=== PATIENT | female | born 1940 | race Caucasian/White ===

== ENCOUNTER 2022-09-21 17:47 | Inpatient (IN) | payer MEDICARE, OTHER ==
[~2022-09-21] VITALS: Ht 154.9 cm; Wt 52.2 kg
[2022-09-21 18:20] VITALS: BP 145/78
[2022-09-21] MEDS ORDERED: ACETAMINOPHEN 325 MG TABLET PO PRN (19:00)
[2022-09-21] MEDS ORDERED: DEXTROSE 40% LEMON 37.5 GM/TUBE GEL [15 GM GLUCOSE] PO PRN (20:00)
[2022-09-21] MEDS ORDERED: DEXTROSE 50%-WATER 25 GM/50 ML SYRINGE IVP PRN (20:00)
[2022-09-21] MEDS: DOCUSATE SODIUM 100 MG CAPSULE PO SCH (22:05)
[2022-09-21] MEDS: SENNOSIDES 8.6 MG TABLET PO SCH (22:05)
[2022-09-21] MEDS: HEPARIN SODIUM,PORCINE 5,000 UNITS/ML VIAL SQ SCH (22:06)
[2022-09-21] MEDS: AMOXICILLIN TRIHYDRATE 500 MG CAPSULE PO SCH (22:06)
[2022-09-21 22:36] LABS: GLUCOMETER DEV NAME(LOC) 2WR.2B; GLUCOSE,POINT OF CARE 126 MG/DL (70-110)
[2022-09-22] MEDS ORDERED: INFLUENZA VIRUS VACCINE QVS 2022-23 (6MO+)/PF 60 MCG/0.5 ML SYRINGE IM. ONE (01:45)
[2022-09-22] MEDS ORDERED: PNEUMOCOCCAL VACCINE POLYVALENT 0.5 ML VIAL [PPSV23] IM. ONE (01:45)
[2022-09-22 04:24] VITALS: BP 153/74
[2022-09-22 06:32] LABS: GLUCOMETER DEV NAME(LOC) 2WR.2B; GLUCOSE,POINT OF CARE 87 MG/DL (70-110)
[2022-09-22] MEDS: LEVOTHYROXINE SODIUM 88 MCG TABLET PO SCH (07:01)
[2022-09-22] MEDS: LANSOPRAZOLE 30 MG CAPSULE PO SCH (07:04)
[2022-09-22 08:00] VITALS: BP 157/77
[2022-09-22] MEDS: ETHYL ALCOHOL 62% ANTISEPTIC NASAL SANITIZER 0.6 ML AMPUL NASAL SCH ×2 (08:37→20:49)
[2022-09-22] MEDS: ASPIRIN 325 MG TABLET PO SCH (08:37)
[2022-09-22] MEDS: ATORVASTATIN CALCIUM 40 MG TABLET PO SCH (08:38)
[2022-09-22] MEDS: MULTIVITAMINS WITH MINERALS, THERAPEUTIC TABLET PO SCH (08:38)
[2022-09-22] MEDS: AMOXICILLIN TRIHYDRATE 500 MG CAPSULE PO SCH ×2 (08:38→17:19)
[2022-09-22] MEDS: DOCUSATE SODIUM 100 MG CAPSULE PO SCH ×2 (08:38→20:49)
[2022-09-22] MEDS: LOSARTAN POTASSIUM 50 MG TABLET PO SCH (08:38)
[2022-09-22] MEDS: HEPARIN SODIUM,PORCINE 5,000 UNITS/ML VIAL SQ SCH ×2 (08:39→20:50)
[2022-09-22 09:30] VITALS: BP 146/70
[2022-09-22] MEDS: INSULIN LISPRO 100 UNITS/ML SQ PRN ×2 (12:41→21:37)
[2022-09-22 12:56] LABS: GLUCOMETER DEV NAME(LOC) 2WR.2B; GLUCOSE,POINT OF CARE 155 MG/DL (70-110)
[2022-09-22 14:12] LABS: BASOPHILS % (AUTO) 0.5 % (0.0-2.0); EOSINOPHILS % (AUTO) 0.4 % (1.0-6.0); HEMATOCRIT 32.6 % (36-46); HEMOGLOBIN 10.8 g/dL (12.0-16.0); LYMPHOCYTES # (AUTO) 1.7 K/uL (1.0-4.8); LYMPHOCYTES % (AUTO) 25.3 % (22.0-44.0); MEAN CORPUSCULAR HEMOGLOBIN 26.7 pg (26.0-34.0); MEAN CORPUSCULAR HGB CONC 33.2 G/dL (31.0-37.0); MEAN CORPUSCULAR VOLUME 81 fL (80-100); MONOCYTES # (AUTO) 0.7 K/uL (0.1-1.0); NEUTROPHILS # (AUTO) 4.2 K/uL (1.8-7.7); NEUTROPHILS % (AUTO) 63.8 % (40.0-70.0); PLATELET COUNT (AUTO) 378 K/uL (150-450); RED BLOOD CELL COUNT(AUTO) 4.05 MIL/uL (4.00-5.20); RED CELL DISTRIBUTION WIDTH 13.9 % (11.5-14.5)
[2022-09-22 14:27] LABS: ALANINE AMINOTRANSFERASE 21 U/L (12-78); ALBUMIN 2.9 g/dL (3.4-5.0); ALKALINE PHOSPHATASE 86 U/L (46-116); ANION GAP 9 mmol/L (8-16); ASPARTATE AMINOTRANSFERASE 33 U/L (15-37); BILIRUBIN,TOTAL 0.4 mg/dL (0.1-1.0); CALCIUM, TOTAL 8.3 mg/dL (8.8-10.5); CARBON DIOXIDE 25 mmol/L (22-29); CHLORIDE 102 mmol/L (98-107); CREATININE 0.68 mg/dL (0.60-1.30); GLOMERULAR FILTR. RATE CALC > 60 mL/min (>60); GLUCOSE,RANDOM 197 mg/dL (70-110); POTASSIUM 3.1 mmol/L (3.5-5.1); SODIUM SERUM 136 mmol/L (136-145); TOTAL PROTEIN, SERUM 6.6 g/dL (6.4-8.2); UREA NITROGEN, BLOOD 11 mg/dL (7-18)
[2022-09-22 17:27] LABS: GLUCOMETER DEV NAME(LOC) 2WR.2B; GLUCOSE,POINT OF CARE 120 MG/DL (70-110)
[2022-09-22] MEDS: SENNOSIDES 8.6 MG TABLET PO SCH (20:50)
[2022-09-22 21:00] VITALS: BP 159/79
[2022-09-22 22:31] LABS: GLUCOMETER DEV NAME(LOC) 2WR.2B; GLUCOSE,POINT OF CARE 163 MG/DL (70-110)
[2022-09-23 07:21] LABS: GLUCOMETER DEV NAME(LOC) 2WR.2B; GLUCOSE,POINT OF CARE 127 MG/DL (70-110)
[2022-09-23] MEDS: LEVOTHYROXINE SODIUM 88 MCG TABLET PO SCH (07:22)
[2022-09-23] MEDS: LANSOPRAZOLE 30 MG CAPSULE PO SCH (07:22)
[2022-09-23 08:00] VITALS: BP 157/83
[2022-09-23] MEDS: DOCUSATE SODIUM 100 MG CAPSULE PO SCH (08:16)
[2022-09-23] MEDS: ASPIRIN 325 MG TABLET PO SCH (08:16)
[2022-09-23] MEDS: LOSARTAN POTASSIUM 50 MG TABLET PO SCH (08:16)
[2022-09-23] MEDS: MULTIVITAMINS WITH MINERALS, THERAPEUTIC TABLET PO SCH (08:17)
[2022-09-23] MEDS: ATORVASTATIN CALCIUM 40 MG TABLET PO SCH (08:17)
[2022-09-23] MEDS: HEPARIN SODIUM,PORCINE 5,000 UNITS/ML VIAL SQ SCH ×2 (08:17→20:25)
[2022-09-23] MEDS: ETHYL ALCOHOL 62% ANTISEPTIC NASAL SANITIZER 0.6 ML AMPUL NASAL SCH ×2 (08:19→20:24)
[2022-09-23 12:26] LABS: GLUCOMETER DEV NAME(LOC) 2WR.1C; GLUCOSE,POINT OF CARE 223 MG/DL (70-110)
[2022-09-23] MEDS: INSULIN LISPRO 100 UNITS/ML SQ PRN ×3 (12:41→20:20)
[2022-09-23] MEDS ORDERED: POTASSIUM CHLORIDE 8 MEQ ER TABLET PO ONE (14:15)
[2022-09-23 19:59] VITALS: BP 174/87
[2022-09-23 20:00] VITALS: BP 167/70
[2022-09-23 20:15] LABS: GLUCOMETER DEV NAME(LOC) 2WR.1C; GLUCOSE,POINT OF CARE 149 MG/DL (70-110)
[2022-09-23] MEDS: DOCUSATE SODIUM 250 MG CAPSULE PO SCH (20:24)
[2022-09-23] MEDS: SENNOSIDES 8.6 MG TABLET PO SCH (20:25)
[2022-09-23] MEDS: MELATONIN 5 MG TABLET PO PRN (20:25)
[2022-09-23 21:21] LABS: GLUCOMETER DEV NAME(LOC) 2WR.2B; GLUCOSE,POINT OF CARE 180 MG/DL (70-110)
[2022-09-24 06:30] VITALS: BP 128/73
[2022-09-24] MEDS: LANSOPRAZOLE 30 MG CAPSULE PO SCH (06:40)
[2022-09-24] MEDS: LEVOTHYROXINE SODIUM 88 MCG TABLET PO SCH (06:40)
[2022-09-24 07:31] LABS: GLUCOMETER DEV NAME(LOC) 2WR.1C; GLUCOSE,POINT OF CARE 143 MG/DL (70-110)
[2022-09-24] MEDS: INSULIN LISPRO 100 UNITS/ML SQ PRN ×4 (07:40→20:38)
[2022-09-24] MEDS: ETHYL ALCOHOL 62% ANTISEPTIC NASAL SANITIZER 0.6 ML AMPUL NASAL SCH ×2 (07:47→20:38)
[2022-09-24] MEDS: HEPARIN SODIUM,PORCINE 5,000 UNITS/ML VIAL SQ SCH ×2 (07:48→20:32)
[2022-09-24] MEDS: ATORVASTATIN CALCIUM 40 MG TABLET PO SCH (07:48)
[2022-09-24] MEDS: MULTIVITAMINS WITH MINERALS, THERAPEUTIC TABLET PO SCH (07:48)
[2022-09-24] MEDS: DOCUSATE SODIUM 250 MG CAPSULE PO SCH ×2 (07:48→20:32)
[2022-09-24] MEDS: ASPIRIN 325 MG TABLET PO SCH (07:48)
[2022-09-24] MEDS: LOSARTAN POTASSIUM 50 MG TABLET PO SCH (07:48)
[2022-09-24 08:33] VITALS: BP 145/68
[2022-09-24 11:41] LABS: ANION GAP 8 mmol/L (8-16); CALCIUM, TOTAL 8.4 mg/dL (8.8-10.5); CARBON DIOXIDE 28 mmol/L (22-29); CHLORIDE 103 mmol/L (98-107); CREATININE 0.71 mg/dL (0.60-1.30); GLOMERULAR FILTR. RATE CALC > 60 mL/min (>60); GLUCOSE,RANDOM 188 mg/dL (70-110); POTASSIUM 3.5 mmol/L (3.5-5.1); SODIUM SERUM 139 mmol/L (136-145); UREA NITROGEN, BLOOD 12 mg/dL (7-18)
[2022-09-24 12:21] LABS: GLUCOMETER DEV NAME(LOC) 2WR.2B; GLUCOSE,POINT OF CARE 167 MG/DL (70-110)
[2022-09-24 17:06] LABS: GLUCOMETER DEV NAME(LOC) 2WR.1C; GLUCOSE,POINT OF CARE 190 MG/DL (70-110)
[2022-09-24] MEDS: DOCUSATE SODIUM 283 MG/5 ML MINI-ENEMA PR PRN (18:45)
[2022-09-24 20:00] VITALS: BP 148/70
[2022-09-24] MEDS: SENNOSIDES 8.6 MG TABLET PO SCH (20:31)
[2022-09-24] MEDS: MELATONIN 5 MG TABLET PO PRN (20:32)
[2022-09-25 05:06] LABS: GLUCOMETER DEV NAME(LOC) 2WR.1C; GLUCOSE,POINT OF CARE 163 MG/DL (70-110)
[2022-09-25] MEDS: LEVOTHYROXINE SODIUM 88 MCG TABLET PO SCH (06:02)
[2022-09-25] MEDS: LANSOPRAZOLE 30 MG CAPSULE PO SCH (06:02)
[2022-09-25 07:11] LABS: GLUCOMETER DEV NAME(LOC) 2WR.1C; GLUCOSE,POINT OF CARE 162 MG/DL (70-110)
[2022-09-25 08:00] VITALS: BP 168/102
[2022-09-25] MEDS: ETHYL ALCOHOL 62% ANTISEPTIC NASAL SANITIZER 0.6 ML AMPUL NASAL SCH ×2 (08:18→20:23)
[2022-09-25] MEDS: DOCUSATE SODIUM 250 MG CAPSULE PO SCH ×2 (08:20→20:23)
[2022-09-25] MEDS: ASPIRIN 325 MG TABLET PO SCH (08:20)
[2022-09-25] MEDS: LOSARTAN POTASSIUM 50 MG TABLET PO SCH (08:21)
[2022-09-25] MEDS: HEPARIN SODIUM,PORCINE 5,000 UNITS/ML VIAL SQ SCH ×2 (08:21→20:24)
[2022-09-25] MEDS: ATORVASTATIN CALCIUM 40 MG TABLET PO SCH (08:21)
[2022-09-25] MEDS: MULTIVITAMINS WITH MINERALS, THERAPEUTIC TABLET PO SCH (08:21)
[2022-09-25] MEDS: INSULIN LISPRO 100 UNITS/ML SQ PRN ×4 (08:23→20:28)
[2022-09-25 09:15] VITALS: BP 157/86
[2022-09-25 11:45] VITALS: BP 158/95
[2022-09-25] MEDS: AmLODIPine BESYLATE 5 MG TABLET PO SCH (11:51)
[2022-09-25 13:45] VITALS: BP 183/86
[2022-09-25 14:08] VITALS: BP 152/79
[2022-09-25 17:11] LABS: GLUCOMETER DEV NAME(LOC) 2WR.1C; GLUCOSE,POINT OF CARE 223 MG/DL (70-110)
[2022-09-25 17:17] LABS: GLUCOMETER DEV NAME(LOC) 2WR.2B; GLUCOSE,POINT OF CARE 172 MG/DL (70-110)
[2022-09-25] MEDS: MELATONIN 5 MG TABLET PO PRN (20:23)
[2022-09-25] MEDS: OXYGEN THERAPY IH SCH (20:23)
[2022-09-25] MEDS: SENNOSIDES 8.6 MG TABLET PO SCH (20:24)
[2022-09-25 20:30] VITALS: BP 142/77
[2022-09-25 21:36] LABS: GLUCOMETER DEV NAME(LOC) 2WR.2B; GLUCOSE,POINT OF CARE 152 MG/DL (70-110)
[2022-09-25] MEDS ORDERED: INSU100I24 SQ (22:13)
[2022-09-25] MEDS ORDERED: DILT60TA3 PO (22:13)
[2022-09-25] MEDS ORDERED: LOSA-382 PO (22:13)
[2022-09-25] MEDS ORDERED: OMEP20 PO (22:13)
[2022-09-25] MEDS ORDERED: LEVO88TA4 PO (22:13)
[2022-09-25] MEDS ORDERED: INSU100I3 SQ (22:13)
[2022-09-26 02:05] VITALS: BP 153/89
[2022-09-26 02:10] VITALS: BP 153/89
[2022-09-26] MEDS: LEVOTHYROXINE SODIUM 88 MCG TABLET PO SCH (06:15)
[2022-09-26] MEDS: LANSOPRAZOLE 30 MG CAPSULE PO SCH (06:15)
[2022-09-26 06:41] LABS: GLUCOMETER DEV NAME(LOC) 2WR.2B; GLUCOSE,POINT OF CARE 158 MG/DL (70-110)
[2022-09-26] MEDS: HEPARIN SODIUM,PORCINE 5,000 UNITS/ML VIAL SQ SCH ×2 (07:36→20:53)
[2022-09-26] MEDS: ASPIRIN 325 MG TABLET PO SCH (07:38)
[2022-09-26] MEDS: DOCUSATE SODIUM 250 MG CAPSULE PO SCH ×2 (07:38→20:53)
[2022-09-26] MEDS: ETHYL ALCOHOL 62% ANTISEPTIC NASAL SANITIZER 0.6 ML AMPUL NASAL SCH ×2 (07:38→20:54)
[2022-09-26] MEDS: AmLODIPine BESYLATE 5 MG TABLET PO SCH (07:39)
[2022-09-26] MEDS: ATORVASTATIN CALCIUM 40 MG TABLET PO SCH (07:40)
[2022-09-26] MEDS: LOSARTAN POTASSIUM 50 MG TABLET PO SCH (07:40)
[2022-09-26] MEDS: MULTIVITAMINS WITH MINERALS, THERAPEUTIC TABLET PO SCH (07:40)
[2022-09-26] MEDS: OXYGEN THERAPY IH SCH ×2 (07:41→20:00)
[2022-09-26] MEDS: INSULIN LISPRO 100 UNITS/ML SQ PRN ×3 (07:43→16:54)
[2022-09-26 09:05] VITALS: BP 143/79
[2022-09-26 10:21] LABS: GLUCOMETER DEV NAME(LOC) 2WR.1C; GLUCOSE,POINT OF CARE 140 MG/DL (70-110)
[2022-09-26] MEDS ORDERED: DILT-39 PO (10:55)
[2022-09-26] MEDS: FLUoxetine HCL 10 MG CAPSULE PO SCH (11:33)
[2022-09-26] MEDS: INSULIN LISPRO 100 UNITS/ML SQ SCH ×2 (12:25→16:54)
[2022-09-26 12:46] LABS: GLUCOMETER DEV NAME(LOC) 2WR.1C; GLUCOSE,POINT OF CARE 185 MG/DL (70-110)
[2022-09-26 17:26] LABS: GLUCOMETER DEV NAME(LOC) 2WR.2B; GLUCOSE,POINT OF CARE 199 MG/DL (70-110)
[2022-09-26 20:00] VITALS: BP 143/65
[2022-09-26] MEDS: SENNOSIDES 8.6 MG TABLET PO SCH (20:53)
[2022-09-26] MEDS: MELATONIN 5 MG TABLET PO PRN (20:53)
[2022-09-26 21:41] LABS: GLUCOMETER DEV NAME(LOC) 2WR.2B; GLUCOSE,POINT OF CARE 132 MG/DL (70-110)
[2022-09-27] MEDS: LEVOTHYROXINE SODIUM 88 MCG TABLET PO SCH (06:31)
[2022-09-27] MEDS: LANSOPRAZOLE 30 MG CAPSULE PO SCH (06:31)
[2022-09-27 07:11] LABS: GLUCOMETER DEV NAME(LOC) 2WR.1C; GLUCOSE,POINT OF CARE 160 MG/DL (70-110)
[2022-09-27] MEDS: INSULIN LISPRO 100 UNITS/ML SQ SCH ×3 (08:00→17:18)
[2022-09-27] MEDS ORDERED: OXYGEN THERAPY IH PRN (08:15)
[2022-09-27] MEDS: FLUoxetine HCL 10 MG CAPSULE PO SCH (09:10)
[2022-09-27] MEDS: MULTIVITAMINS WITH MINERALS, THERAPEUTIC TABLET PO SCH (09:10)
[2022-09-27] MEDS: HEPARIN SODIUM,PORCINE 5,000 UNITS/ML VIAL SQ SCH ×2 (09:10→20:40)
[2022-09-27] MEDS: LOSARTAN POTASSIUM 50 MG TABLET PO SCH (09:10)
[2022-09-27] MEDS: DOCUSATE SODIUM 250 MG CAPSULE PO SCH ×2 (09:10→20:40)
[2022-09-27] MEDS: ATORVASTATIN CALCIUM 40 MG TABLET PO SCH (09:11)
[2022-09-27] MEDS: ETHYL ALCOHOL 62% ANTISEPTIC NASAL SANITIZER 0.6 ML AMPUL NASAL SCH ×2 (09:12→20:39)
[2022-09-27] MEDS: ASPIRIN 325 MG TABLET PO SCH (09:12)
[2022-09-27] MEDS: AmLODIPine BESYLATE 5 MG TABLET PO SCH (09:12)
[2022-09-27 11:31] VITALS: BP 145/76
[2022-09-27 12:16] LABS: GLUCOMETER DEV NAME(LOC) 2WR.2B; GLUCOSE,POINT OF CARE 157 MG/DL (70-110)
[2022-09-27] MEDS: INSULIN LISPRO 100 UNITS/ML SQ PRN ×2 (12:21→17:20)
[2022-09-27] MEDS: SENNOSIDES 8.6 MG TABLET PO SCH (20:39)
[2022-09-27] MEDS: MELATONIN 5 MG TABLET PO PRN (20:41)
[2022-09-27 21:55] VITALS: BP 148/79
[2022-09-27 22:46] LABS: GLUCOMETER DEV NAME(LOC) 2WR.2B; GLUCOSE,POINT OF CARE 94 MG/DL (70-110)
[2022-09-28 01:41] LABS: GLUCOMETER DEV NAME(LOC) 2WR.1C; GLUCOSE,POINT OF CARE 162 MG/DL (70-110)
[2022-09-28 05:21] VITALS: BP 145/82
[2022-09-28] MEDS: LEVOTHYROXINE SODIUM 88 MCG TABLET PO SCH (06:46)
[2022-09-28] MEDS: LANSOPRAZOLE 30 MG CAPSULE PO SCH (06:46)
[2022-09-28 07:10] LABS: GLUCOMETER DEV NAME(LOC) 2WR.2B; GLUCOSE,POINT OF CARE 159 MG/DL (70-110)
[2022-09-28 08:00] VITALS: BP 152/76
[2022-09-28] MEDS: ASPIRIN 325 MG TABLET PO SCH (08:10)
[2022-09-28] MEDS: ETHYL ALCOHOL 62% ANTISEPTIC NASAL SANITIZER 0.6 ML AMPUL NASAL SCH ×2 (08:10→19:52)
[2022-09-28] MEDS: DOCUSATE SODIUM 250 MG CAPSULE PO SCH ×3 (08:10→20:10)
[2022-09-28] MEDS: ATORVASTATIN CALCIUM 40 MG TABLET PO SCH (08:11)
[2022-09-28] MEDS: LOSARTAN POTASSIUM 50 MG TABLET PO SCH (08:11)
[2022-09-28] MEDS: AmLODIPine BESYLATE 5 MG TABLET PO SCH (08:12)
[2022-09-28] MEDS: MULTIVITAMINS WITH MINERALS, THERAPEUTIC TABLET PO SCH (08:12)
[2022-09-28] MEDS: HEPARIN SODIUM,PORCINE 5,000 UNITS/ML VIAL SQ SCH ×2 (08:13→19:53)
[2022-09-28] MEDS: FLUoxetine HCL 10 MG CAPSULE PO SCH (08:13)
[2022-09-28] MEDS: INSULIN LISPRO 100 UNITS/ML SQ SCH ×3 (08:15→17:16)
[2022-09-28] MEDS: INSULIN LISPRO 100 UNITS/ML SQ PRN ×2 (08:15→17:17)
[2022-09-28 11:33] VITALS: BP 137/68
[2022-09-28 13:51] LABS: GLUCOMETER DEV NAME(LOC) 2WR.1C; GLUCOSE,POINT OF CARE 109 MG/DL (70-110)
[2022-09-28] MEDS ORDERED: IBUPROFEN 400 MG TABLET PO PRN (16:30)
[2022-09-28 17:01] LABS: GLUCOMETER DEV NAME(LOC) 2WR.2B; GLUCOSE,POINT OF CARE 193 MG/DL (70-110)
[2022-09-28 17:11] LABS: APPEARANCE,URINE CLEAR (CLEAR); BILIRUBIN,URINE NEGATIVE (NEGATIVE); GLUCOSE, URINE (UA) TRACE mg/dL (NEGATIVE); KETONES,URINE TRACE mg/dL (NEGATIVE); LEUKOCYTE ESTERASE ,URINE MODERATE (NEGATIVE); NITRATE,URINE NEGATIVE (NEGATIVE); OCCULT BLOOD,URINE NEGATIVE (NEGATIVE); PROTEIN,URINE 30-70 mg/dL (NEGATIVE); SPECIFIC GRAVITIY, URINE 1.023 (1.003-1.030); UROBILINOGEN,URINE <=1.0 mg/dL (<=1.0)
[2022-09-28 17:20] LABS: SQUAMOUS EPITHELIAL CELL,UR Many /LPF (None Seen)
[2022-09-28 17:23] LABS: RBC,URINE None Seen /HPF (0-2)
[2022-09-28 17:24] LABS: BACTERIA,URINE None Seen /HPF (None Seen)
[2022-09-28] MEDS: MELATONIN 5 MG TABLET PO PRN ×2 (19:53→20:10)
[2022-09-28] MEDS: SENNOSIDES 8.6 MG TABLET PO SCH ×2 (19:53→20:10)
[2022-09-28 19:55] VITALS: BP 152/73
[2022-09-28 21:51] LABS: GLUCOMETER DEV NAME(LOC) 2WR.1C; GLUCOSE,POINT OF CARE 107 MG/DL (70-110)
[2022-09-29 01:27] VITALS: BP 142/73
[2022-09-29] MEDS: LEVOTHYROXINE SODIUM 88 MCG TABLET PO SCH (06:14)
[2022-09-29] MEDS: LANSOPRAZOLE 30 MG CAPSULE PO SCH (06:14)
[2022-09-29 07:23] LABS: BASOPHILS % (AUTO) 0.8 % (0.0-2.0); EOSINOPHILS % (AUTO) 0.7 % (1.0-6.0); HEMATOCRIT 32.6 % (36-46); HEMOGLOBIN 11.2 g/dL (12.0-16.0); LYMPHOCYTES # (AUTO) 2.3 K/uL (1.0-4.8); LYMPHOCYTES % (AUTO) 27.3 % (22.0-44.0); MEAN CORPUSCULAR HEMOGLOBIN 27.8 pg (26.0-34.0); MEAN CORPUSCULAR HGB CONC 34.3 G/dL (31.0-37.0); MEAN CORPUSCULAR VOLUME 81 fL (80-100); MONOCYTES # (AUTO) 0.7 K/uL (0.1-1.0); MONOCYTES % (AUTO) 8.4 % (2.0-9.0); NEUTROPHILS # (AUTO) 5.2 K/uL (1.8-7.7); NEUTROPHILS % (AUTO) 62.8 % (40.0-70.0); PLATELET COUNT (AUTO) 370 K/uL (150-450); RED BLOOD CELL COUNT(AUTO) 4.03 MIL/uL (4.00-5.20); RED CELL DISTRIBUTION WIDTH 14.3 % (11.5-14.5)
[2022-09-29 07:31] LABS: ANION GAP 9 mmol/L (8-16); CALCIUM, TOTAL 8.8 mg/dL (8.8-10.5); CARBON DIOXIDE 27 mmol/L (22-29); CHLORIDE 102 mmol/L (98-107); CREATININE 0.78 mg/dL (0.60-1.30); GLOMERULAR FILTR. RATE CALC > 60 mL/min (>60); GLUCOSE,RANDOM 171 mg/dL (70-110); POTASSIUM 3.6 mmol/L (3.5-5.1); SODIUM SERUM 138 mmol/L (136-145); UREA NITROGEN, BLOOD 21 mg/dL (7-18)
[2022-09-29 08:00] VITALS: BP 154/79
[2022-09-29] MEDS: INSULIN LISPRO 100 UNITS/ML SQ PRN ×2 (08:21→17:48)
[2022-09-29] MEDS: INSULIN LISPRO 100 UNITS/ML SQ SCH ×3 (08:21→17:48)
[2022-09-29] MEDS: DOCUSATE SODIUM 250 MG CAPSULE PO SCH ×2 (08:22→20:28)
[2022-09-29] MEDS: ETHYL ALCOHOL 62% ANTISEPTIC NASAL SANITIZER 0.6 ML AMPUL NASAL SCH ×2 (08:22→20:28)
[2022-09-29] MEDS: ASPIRIN 325 MG TABLET PO SCH (08:22)
[2022-09-29] MEDS: ATORVASTATIN CALCIUM 40 MG TABLET PO SCH (08:23)
[2022-09-29] MEDS: LOSARTAN POTASSIUM 50 MG TABLET PO SCH (08:23)
[2022-09-29] MEDS: AmLODIPine BESYLATE 5 MG TABLET PO SCH (08:23)
[2022-09-29] MEDS: FLUoxetine HCL 10 MG CAPSULE PO SCH (08:24)
[2022-09-29] MEDS: MULTIVITAMINS WITH MINERALS, THERAPEUTIC TABLET PO SCH (08:24)
[2022-09-29] MEDS: HEPARIN SODIUM,PORCINE 5,000 UNITS/ML VIAL SQ SCH ×2 (08:24→20:28)
[2022-09-29 08:46] LABS: GLUCOMETER DEV NAME(LOC) 2WR.2B; GLUCOSE,POINT OF CARE 152 MG/DL (70-110)
[2022-09-29 12:36] LABS: GLUCOMETER DEV NAME(LOC) 2WR.2B; GLUCOSE,POINT OF CARE 121 MG/DL (70-110)
[2022-09-29 17:01] LABS: GLUCOMETER DEV NAME(LOC) 2WR.2B; GLUCOSE,POINT OF CARE 154 MG/DL (70-110)
[2022-09-29 20:24] VITALS: BP 141/65
[2022-09-29 20:26] VITALS: BP 141/65
[2022-09-29] MEDS: MELATONIN 5 MG TABLET PO PRN (20:27)
[2022-09-29] MEDS: SENNOSIDES 8.6 MG TABLET PO SCH (20:27)
[2022-09-29 20:31] LABS: GLUCOMETER DEV NAME(LOC) 2WR.2B; GLUCOSE,POINT OF CARE 123 MG/DL (70-110)
[2022-09-30] MEDS: DOCUSATE SODIUM 283 MG/5 ML MINI-ENEMA PR PRN (00:45)
[2022-09-30] MEDS: LANSOPRAZOLE 30 MG CAPSULE PO SCH (06:42)
[2022-09-30] MEDS: LEVOTHYROXINE SODIUM 88 MCG TABLET PO SCH (06:42)
[2022-09-30 06:56] LABS: GLUCOMETER DEV NAME(LOC) 2WR.1C; GLUCOSE,POINT OF CARE 153 MG/DL (70-110)
[2022-09-30] MEDS: INSULIN LISPRO 100 UNITS/ML SQ SCH ×3 (08:21→16:45)
[2022-09-30] MEDS: INSULIN LISPRO 100 UNITS/ML SQ PRN ×2 (08:22→16:46)
[2022-09-30 08:30] VITALS: BP 154/75
[2022-09-30] MEDS: LOSARTAN POTASSIUM 50 MG TABLET PO SCH (09:44)
[2022-09-30] MEDS: HEPARIN SODIUM,PORCINE 5,000 UNITS/ML VIAL SQ SCH ×2 (09:44→20:44)
[2022-09-30] MEDS: DOCUSATE SODIUM 250 MG CAPSULE PO SCH ×2 (09:44→20:44)
[2022-09-30] MEDS: ETHYL ALCOHOL 62% ANTISEPTIC NASAL SANITIZER 0.6 ML AMPUL NASAL SCH ×2 (09:45→20:43)
[2022-09-30] MEDS: MULTIVITAMINS WITH MINERALS, THERAPEUTIC TABLET PO SCH (09:45)
[2022-09-30] MEDS: ASPIRIN 325 MG TABLET PO SCH (09:45)
[2022-09-30] MEDS: ATORVASTATIN CALCIUM 40 MG TABLET PO SCH (09:45)
[2022-09-30] MEDS: AmLODIPine BESYLATE 5 MG TABLET PO SCH (09:45)
[2022-09-30] MEDS: FLUoxetine HCL 10 MG CAPSULE PO SCH (09:46)
[2022-09-30 12:50] VITALS: BP 139/67
[2022-09-30 13:36] LABS: GLUCOMETER DEV NAME(LOC) 2WR.1C; GLUCOSE,POINT OF CARE 101 MG/DL (70-110)
[2022-09-30 17:52] LABS: GLUCOMETER DEV NAME(LOC) 2WR.2B; GLUCOSE,POINT OF CARE 178 MG/DL (70-110)
[2022-09-30] MEDS: SENNOSIDES 8.6 MG TABLET PO SCH (20:44)
[2022-09-30] MEDS: MELATONIN 5 MG TABLET PO PRN (20:44)
[2022-09-30 20:50] VITALS: BP 146/67
[2022-09-30 21:51] LABS: GLUCOMETER DEV NAME(LOC) 2WR.2B; GLUCOSE,POINT OF CARE 112 MG/DL (70-110)
[2022-10-01] MEDS ORDERED: FLUO10CA24 PO (00:37)
[2022-10-01] MEDS ORDERED: LANS30CA56 PO (00:37)
[2022-10-01] MEDS ORDERED: LOSA-382 PO (00:37)
[2022-10-01] MEDS ORDERED: INSU100I15 SQ ×2 (00:37)
[2022-10-01] MEDS ORDERED: MULT-248 PO (00:37)
[2022-10-01] MEDS ORDERED: AMLO-257 PO (00:37)
[2022-10-01] MEDS ORDERED: LEVO88TA4 PO (00:37)
[2022-10-01] MEDS ORDERED: ASPI-989 PO (00:37)
[2022-10-01] MEDS ORDERED: ATOR40TA28 PO (00:37)
[2022-10-01] MEDS ORDERED: DOCU-350 PO (00:37)
[2022-10-01] MEDS: LANSOPRAZOLE 30 MG CAPSULE PO SCH (06:31)
[2022-10-01] MEDS: LEVOTHYROXINE SODIUM 88 MCG TABLET PO SCH (06:31)
[2022-10-01 08:00] VITALS: BP 115/64
[2022-10-01] MEDS: INSULIN LISPRO 100 UNITS/ML SQ PRN ×3 (08:04→20:37)
[2022-10-01] MEDS: INSULIN LISPRO 100 UNITS/ML SQ SCH ×3 (08:04→16:30)
[2022-10-01] MEDS: ETHYL ALCOHOL 62% ANTISEPTIC NASAL SANITIZER 0.6 ML AMPUL NASAL SCH ×2 (08:05→20:31)
[2022-10-01] MEDS: HEPARIN SODIUM,PORCINE 5,000 UNITS/ML VIAL SQ SCH ×2 (08:05→20:32)
[2022-10-01] MEDS: MULTIVITAMINS WITH MINERALS, THERAPEUTIC TABLET PO SCH (08:06)
[2022-10-01] MEDS: DOCUSATE SODIUM 250 MG CAPSULE PO SCH ×2 (08:06→20:31)
[2022-10-01] MEDS: ASPIRIN 325 MG TABLET PO SCH (08:06)
[2022-10-01] MEDS: FLUoxetine HCL 10 MG CAPSULE PO SCH (08:06)
[2022-10-01] MEDS: LOSARTAN POTASSIUM 50 MG TABLET PO SCH (08:06)
[2022-10-01] MEDS: ATORVASTATIN CALCIUM 40 MG TABLET PO SCH (08:06)
[2022-10-01] MEDS: AmLODIPine BESYLATE 5 MG TABLET PO SCH (08:06)
[2022-10-01 08:26] LABS: GLUCOMETER DEV NAME(LOC) 2WR.1C; GLUCOSE,POINT OF CARE 142 MG/DL (70-110)
[2022-10-01 12:06] LABS: GLUCOMETER DEV NAME(LOC) 2WR.2B; GLUCOSE,POINT OF CARE 144 MG/DL (70-110)
[2022-10-01] MEDS: DOCUSATE SODIUM 283 MG/5 ML MINI-ENEMA PR PRN (14:00)
[2022-10-01 17:36] LABS: GLUCOMETER DEV NAME(LOC) 2WR.1C; GLUCOSE,POINT OF CARE 85 MG/DL (70-110)
[2022-10-01 20:00] VITALS: BP 141/70
[2022-10-01] MEDS: SENNOSIDES 8.6 MG TABLET PO SCH (20:31)
[2022-10-01] MEDS: MELATONIN 5 MG TABLET PO PRN (20:32)
[2022-10-01 21:01] LABS: GLUCOMETER DEV NAME(LOC) 2WR.2B; GLUCOSE,POINT OF CARE 161 MG/DL (70-110)
[2022-10-02] MEDS: LEVOTHYROXINE SODIUM 88 MCG TABLET PO SCH (06:20)
[2022-10-02] MEDS: LANSOPRAZOLE 30 MG CAPSULE PO SCH (06:20)
[2022-10-02 06:46] LABS: GLUCOMETER DEV NAME(LOC) 2WR.2B; GLUCOSE,POINT OF CARE 136 MG/DL (70-110)
[2022-10-02] MEDS: HEPARIN SODIUM,PORCINE 5,000 UNITS/ML VIAL SQ SCH ×2 (07:57→20:53)
[2022-10-02] MEDS: MULTIVITAMINS WITH MINERALS, THERAPEUTIC TABLET PO SCH (07:57)
[2022-10-02] MEDS: ETHYL ALCOHOL 62% ANTISEPTIC NASAL SANITIZER 0.6 ML AMPUL NASAL SCH ×2 (07:58→20:52)
[2022-10-02] MEDS: DOCUSATE SODIUM 250 MG CAPSULE PO SCH ×2 (07:58→20:53)
[2022-10-02] MEDS: AmLODIPine BESYLATE 5 MG TABLET PO SCH (07:58)
[2022-10-02] MEDS: LOSARTAN POTASSIUM 50 MG TABLET PO SCH (07:58)
[2022-10-02] MEDS: ASPIRIN 325 MG TABLET PO SCH (07:58)
[2022-10-02] MEDS: FLUoxetine HCL 10 MG CAPSULE PO SCH (07:58)
[2022-10-02] MEDS: ATORVASTATIN CALCIUM 40 MG TABLET PO SCH (07:58)
[2022-10-02 08:00] VITALS: BP 154/72
[2022-10-02] MEDS: INSULIN LISPRO 100 UNITS/ML SQ SCH ×3 (08:00→17:08)
[2022-10-02] MEDS: INSULIN LISPRO 100 UNITS/ML SQ PRN ×2 (12:24→20:56)
[2022-10-02 14:01] LABS: GLUCOMETER DEV NAME(LOC) 2WR.2B; GLUCOSE,POINT OF CARE 222 MG/DL (70-110)
[2022-10-02 17:16] LABS: GLUCOMETER DEV NAME(LOC) 2WR.1C; GLUCOSE,POINT OF CARE 132 MG/DL (70-110)
[2022-10-02 20:30] VITALS: BP 154/80
[2022-10-02] MEDS: SENNOSIDES 8.6 MG TABLET PO SCH (20:52)
[2022-10-02] MEDS: NITROFURANTOIN MONOHYD/M-CRYST 100 MG CAPSULE [MACROBID] PO SCH (20:53)
[2022-10-02] MEDS: MELATONIN 5 MG TABLET PO PRN (20:53)
[2022-10-03 05:41] LABS: GLUCOMETER DEV NAME(LOC) 2WR.1C; GLUCOSE,POINT OF CARE 170 MG/DL (70-110)
[2022-10-03] MEDS: LANSOPRAZOLE 30 MG CAPSULE PO SCH (06:07)
[2022-10-03] MEDS: LEVOTHYROXINE SODIUM 88 MCG TABLET PO SCH (06:07)
[2022-10-03 07:06] LABS: GLUCOMETER DEV NAME(LOC) 2WR.2B; GLUCOSE,POINT OF CARE 172 MG/DL (70-110)
[2022-10-03] MEDS: ETHYL ALCOHOL 62% ANTISEPTIC NASAL SANITIZER 0.6 ML AMPUL NASAL SCH ×2 (07:30→20:33)
[2022-10-03] MEDS: FLUoxetine HCL 10 MG CAPSULE PO SCH (07:31)
[2022-10-03] MEDS: HEPARIN SODIUM,PORCINE 5,000 UNITS/ML VIAL SQ SCH ×2 (07:32→20:33)
[2022-10-03] MEDS: MULTIVITAMINS WITH MINERALS, THERAPEUTIC TABLET PO SCH (07:34)
[2022-10-03] MEDS: DOCUSATE SODIUM 250 MG CAPSULE PO SCH ×2 (07:34→20:32)
[2022-10-03] MEDS: LOSARTAN POTASSIUM 50 MG TABLET PO SCH (07:35)
[2022-10-03] MEDS: AmLODIPine BESYLATE 5 MG TABLET PO SCH (07:37)
[2022-10-03] MEDS: NITROFURANTOIN MONOHYD/M-CRYST 100 MG CAPSULE [MACROBID] PO SCH ×2 (07:37→20:33)
[2022-10-03] MEDS: ASPIRIN 325 MG TABLET PO SCH (07:37)
[2022-10-03] MEDS: ATORVASTATIN CALCIUM 40 MG TABLET PO SCH (07:38)
[2022-10-03] MEDS: INSULIN LISPRO 100 UNITS/ML SQ SCH ×3 (07:43→17:58)
[2022-10-03] MEDS: INSULIN LISPRO 100 UNITS/ML SQ PRN ×2 (07:43→17:59)
[2022-10-03 09:05] VITALS: BP 140/77
[2022-10-03 11:57] LABS: GLUCOMETER DEV NAME(LOC) 2WR.2B; GLUCOSE,POINT OF CARE 93 MG/DL (70-110)
[2022-10-03 14:11] LABS: GLUCOMETER DEV NAME(LOC) 2WR.1C; GLUCOSE,POINT OF CARE 147 MG/DL (70-110)
[2022-10-03 14:40] VITALS: BP 137/77
[2022-10-03 17:17] LABS: GLUCOMETER DEV NAME(LOC) 2WR.1C; GLUCOSE,POINT OF CARE 161 MG/DL (70-110)
[2022-10-03 20:00] VITALS: BP 144/71
[2022-10-03] MEDS: SENNOSIDES 8.6 MG TABLET PO SCH (20:33)
[2022-10-03 21:11] LABS: GLUCOMETER DEV NAME(LOC) 2WR.2B; GLUCOSE,POINT OF CARE 51 MG/DL (70-110)
[2022-10-03 21:26] LABS: GLUCOMETER DEV NAME(LOC) 2WR.2B; GLUCOSE,POINT OF CARE 99 MG/DL (70-110)
[2022-10-03] MEDS: MELATONIN 5 MG TABLET PO PRN (23:03)
[2022-10-04] MEDS: LANSOPRAZOLE 30 MG CAPSULE PO SCH (06:28)
[2022-10-04] MEDS: LEVOTHYROXINE SODIUM 88 MCG TABLET PO SCH (06:28)
[2022-10-04 08:00] VITALS: BP 159/85
[2022-10-04 08:01] LABS: GLUCOMETER DEV NAME(LOC) 2WR.2B; GLUCOSE,POINT OF CARE 143 MG/DL (70-110)
[2022-10-04] MEDS: ATORVASTATIN CALCIUM 40 MG TABLET PO SCH (08:36)
[2022-10-04] MEDS: DOCUSATE SODIUM 250 MG CAPSULE PO SCH (08:36)
[2022-10-04] MEDS: LOSARTAN POTASSIUM 50 MG TABLET PO SCH (08:36)
[2022-10-04] MEDS: ETHYL ALCOHOL 62% ANTISEPTIC NASAL SANITIZER 0.6 ML AMPUL NASAL SCH (08:36)
[2022-10-04] MEDS: ASPIRIN 325 MG TABLET PO SCH (08:36)
[2022-10-04] MEDS: MULTIVITAMINS WITH MINERALS, THERAPEUTIC TABLET PO SCH (08:37)
[2022-10-04] MEDS: NITROFURANTOIN MONOHYD/M-CRYST 100 MG CAPSULE [MACROBID] PO SCH (08:37)
[2022-10-04] MEDS: AmLODIPine BESYLATE 5 MG TABLET PO SCH (08:37)
[2022-10-04] MEDS: FLUoxetine HCL 10 MG CAPSULE PO SCH (08:37)
[2022-10-04] MEDS: HEPARIN SODIUM,PORCINE 5,000 UNITS/ML VIAL SQ SCH (08:37)
[2022-10-04] MEDS: INSULIN LISPRO 100 UNITS/ML SQ SCH ×3 (08:41→16:30)
[2022-10-04] MEDS: INSULIN LISPRO 100 UNITS/ML SQ PRN (08:42)
[2022-10-04] MEDS ORDERED: LANS30CA55 PO (10:26)
[2022-10-04] MEDS ORDERED: MULT-1239 PO (10:26)
[2022-10-04] MEDS ORDERED: PROZ10 PO (10:26)
[2022-10-04] MEDS ORDERED: ASPI-1026 PO (10:26)
[2022-10-04] MEDS ORDERED: SENN-187 PO (10:26)
[2022-10-04] MEDS ORDERED: DOCU-350 PO (10:26)
[2022-10-04] MEDS ORDERED: ATOR40TA71 PO (10:26)
[2022-10-04] MEDS ORDERED: INSU100V SQ ×2 (10:26)
[2022-10-04] MEDS ORDERED: NITR-75 PO (10:26)
[2022-10-04] MEDS ORDERED: LEVO88TA7 PO (10:26)
[2022-10-04] MEDS ORDERED: AMLO-257 PO (10:26)
[2022-10-04] MEDS ORDERED: LOSA-382 PO (10:26)
[2022-10-04 10:28] VITALS: BP 140/74
[2022-10-04 13:17] LABS: GLUCOMETER DEV NAME(LOC) 2WR.2B; GLUCOSE,POINT OF CARE 57 MG/DL (70-110)
[2022-10-04 13:17] LABS: GLUCOMETER DEV NAME(LOC) 2WR.1C; GLUCOSE,POINT OF CARE 75 MG/DL (70-110)
[2022-10-04 20:11] LABS: GLUCOMETER DEV NAME(LOC) 2WR.1C; GLUCOSE,POINT OF CARE 125 MG/DL (70-110)
== END 2022-10-04 17:10 | disposition home health service (06) | DRG 56 ==
LOC: 2WR 18:00
PROVIDERS: ADMIT Physical Medicine & Rehabilitation; ATTEND Physical Medicine & Rehabilitation
DX: G81.91 Hemiplegia, unspecified affecting right dominant side (principal); I63.512 Cerebral infarction due to unspecified occlusion or stenosis of left middle cerebral artery; N39.0 Urinary tract infection, site not specified; R47.01 Aphasia; I65.22 Occlusion and stenosis of left carotid artery; K59.00 Constipation, unspecified; R29.707 NIHSS score 7; E87.6 Hypokalemia; G47.00 Insomnia, unspecified; F32.A Depression, unspecified; E03.9 Hypothyroidism, unspecified; E78.5 Hyperlipidemia, unspecified; E11.9 Type 2 diabetes mellitus without complications; I10 Essential (primary) hypertension; E16.2 Hypoglycemia, unspecified; R07.89 Other chest pain; Z60.2 Problems related to living alone; R47.1 Dysarthria and anarthria; E78.00 Pure hypercholesterolemia, unspecified; Z86.73 Personal history of transient ischemic attack (TIA), and cerebral infarction without residual deficits; Z90.49 Acquired absence of other specified parts of digestive tract; Z79.4 Long term (current) use of insulin; Z79.899 Other long term (current) drug therapy; Z79.82 Long term (current) use of aspirin
CPT/HCPCS: 80048; 80053; 81001; 82962; 84484; 85025; 87081; 87086; 87186; 92507; 92523; 93005; 97112; 97116; 97163; 97166; 97530; 97535; 99366; J1644; J1815; Q9967